=== PATIENT | male | born 1975 ===

== ENCOUNTER 2021-12-29 20:10 | Emergency (ER) | payer OTHER, SELFPAY ==
--- NOTE | ~2021-12-29 | XR_ITS ---
EXAMINATION: XR ANKLE, RIGHT XR FOOT, RIGHT CLINICAL INFORMATION: Pain. Limited range of motion. COMPARISON: None TECHNIQUE: AP, oblique, and lateral views of the right ankle and right foot. FINDINGS: No acute fracture or dislocation. The ankle mortise is maintained. Mild joint space narrowing with small marginal osteophytes at the talonavicular joint. Mild joint space narrowing with tiny marginal osteophytes at the hallux sesamoids. No concerning lytic or blastic osseous lesion. Plantar and dorsal calcaneal spurs. XR/XR foot RT min 3V IMPRESSION: 1. No acute fracture or dislocation. 2. 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 3. Plantar and dorsal calcaneal spurs.
--- NOTE | ~2021-12-29 | XR_ITS ---
EXAMINATION: XR ANKLE, RIGHT XR FOOT, RIGHT CLINICAL INFORMATION: Pain. Limited range of motion. COMPARISON: None TECHNIQUE: AP, oblique, and lateral views of the right ankle and right foot. FINDINGS: No acute fracture or dislocation. The ankle mortise is maintained. Mild joint space narrowing with small marginal osteophytes at the talonavicular joint. Mild joint space narrowing with tiny marginal osteophytes at the hallux sesamoids. No concerning lytic or blastic osseous lesion. Plantar and dorsal calcaneal spurs. XR/XR ankle RT min 3V IMPRESSION: 1. No acute fracture or dislocation. 2. 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 3. Plantar and dorsal calcaneal spurs.
[2021-12-29 20:35] VITALS: BP 152/72; PULSE 96; RESP 18; TEMP 37.2; O2SAT 98; BMI 35.5
--- OUTSIDE RECORDS SUMMARY | 2021-12-29 21:50 | XMS_ITS | Continuity of Care Document ---
:1975 Author Organization [facility] Address [address] [place] [address]- Care Team Providers Name Role Phone Cristopher JOHNSTON, Kyle Primary Care Phys[place] [facility] [place] [facility] [address] [place] [phone]- Attending Physician: Jose Eduardo Friedman Admitting Physician: AdmJose Eduardo oh Referring Physician: Admtr ArStas Allergies, Adverse Reactions, Alerts Substance Reaction Severity Status Peanuts edema, itching Active Fruit Active Medications Alcohol Pads See Instructions, # 1 box, Refills 1, Tot. Refills 1, Maintenance, use daily to check sugar. ,04/18/16 11:43:42, Compound Start Date: 04/18/16 Status: OrderedFreestyle InsuLinx Test Strips See Instructions, # 50 each, Refills 1, Tot. Refills 1, Maintenance, Use once daily to check sugar. ., 04/18/16 11:43:07, Compound Start Date: 04/18/16 Status: OrderedFreestyle Lite Lancets See Instructions, # 50 each, Refills 1, Tot. Refills 1, Maintenance, Use once daily to check sugar. , 04/18/16 11:42:11, Compound Start Date: 04/18/16 Status: OrderedFreestyle Lite Monitor See Instructions, # 1 each, Maintenance, Use daily to check glucose., 12/11/15 15:14:39, Compound Start Date: 12/11/15 Status: OrderedFreestyle Lite Test Strips See Instructions, # 100 each, Refills 3, Tot. Refills 3, Maintenance, use as directed for Type 2 Diabetes Mellitus, E11.65, check BS once daily. 90 day supply., 05/04/16 11:28:39, Compound Start Date: 05/04/16 Stop Date: 09/01/16 Status: OrderedLamISIL AT 1% topical cream 1 application, Topically, 2 times a day, # 30 Gm, 3 Refills, Maintenance, 01/06/16 19:06:38, Cream, 1 application Topically 2 times a day Start Date: 01/06/16 Status: OrderedmetFORMIN 500 mg oral tablet 1 tablet = 500 mg, By Mouth, 2 times a day, with meals, # 60 tablet, 11 Refills, Maintenance, 01/26/16 8:48:16, Tablet Start Date: 01/26/16 Stop Date: 01/20/17 Status: Ordered Problem List Condition Effective Dates Status Health Status Informant Hypertension(Confirmed) Active VIKTOR (obstructive sleep Active apnea)(Confirmed) Type 2 diabetes mellitus(Confirmed) Active Social History Social History Type Response Smoking Status Never smoker entered on: 09/22/13 Sex
--- OUTSIDE RECORDS SUMMARY | 2021-12-29 21:50 | XMS_ITS | Continuity of Care Document ---
:1975 Author Organization [facility] Adult Address [address] [place] [address]- Care Team Providers Name Role Phone Cristopher JOHNSTON, Kyle Primary Care Physician [place] [facility] [place] 07[place]/21 [facility] [address] [place] [phone]- Attending Physician: Not on Staff, Attending MD Allergies, Adverse Reactions, Alerts Substance Reaction Severity [...] as directed for Type 2 Diabetes Mellitus, , check BS once daily. 90 day supply., [...]
--- OUTSIDE RECORDS SUMMARY | 2021-12-29 21:50 | XMS_ITS | Continuity of Care Document ---
:1975 Author Organization [facility] Adult Address [address] [place] [address]- Care Team Providers Name Role Phone Kyle Nicholas MD Primary Care Physician [place] [facility] [place] 03[place]/21 [facility] [address] [place] [phone]- Allergies, Adverse Reactions, Alerts Substance Reaction Severity [...] 1 each, Maintenance, Use daily to check glucose.12/11/15 15:14:39, Compound Start Date: 12/11/15 Status: OrderedFreestyle Lite Test Strips See Instructions, # 100 each, Refills 3, Tot. Refills 3, Maintenance, use as directed for Type 2 Diabetes Mellitus, , check BS once daily. day supply., 05/04/16 11:28:39, Compound Start Date: [...]
--- NOTE | 2021-12-29 21:57 | ED.LOWEXIN ---
HPI - Extremity Injury (Lower) General Chief Complaint: Extremity Injury, Lower Stated Complaint: ankle inj - work related Time Seen by Provider: 12/29/21 21:50 Source: patient Mode of arrival: wheelchair Limitations: no limitations History of Present Illness HPI Narrative: patient comes to the emergency room complaining of right ankle pain. Patient states he was at work, he accidentally sprained his ankle. Patient denies falling, no loss of consciousness or head strike. Patient states that Initially he was able to bear weight but it was hurting doing so. Patient sat down for a moment to rest, then when he got up, he noticed that the pain was unbearable and since then he has been unable to bear weight on his foot Related Data Allergies Allergy/AdvReac Type Severity Reaction Status Date / Time No Known Allergies Allergy Verified 12/29/21 20:35 Review of Systems Review of Systems: Constitutional : No Weight loss, No Fever, No Chills, No Night Sweats, No Fatigue, No Malaise ENT/Mouth : No Hearing loss, No Ear Pain, No Nasal Congestion, No Sinus Pain, No Hoarseness, No sore throat, No Rhinorrhea, No Swallowing Difficulty Eyes: No Eye Pain, No Swelling, No Redness, No Foreign Body, No Discharge, No Vision Changes Cardiovascular : No Chest Pain, No SOB, No Dyspnea on Exertion, No Orthopnea, No Edema, No Palpitations Respiratory : No Cough, No Sputum, No Wheezing, No Smoke Exposure, No Dyspnea Gastrointestinal : No Nausea, No Vomiting, No Diarrhea, No Constipation, No abdominal Pain, No Hematochezia, No Melena Genitourinary : no irregular bleeding, No Dysuria, No Urinary Frequency, No Hematuria, No Urinary Incontinence, No Urgency, No Flank Pain, No Urinary Flow Changes, No Hesitancy Musculoskeletal : complaining right ankle pain No Myalgias, No Joint Swelling Skin : No Skin Lesions, No rash Neuro : No Weakness, No Numbness, No Paresthesias, No Loss of Consciousness, No Dizziness, No Headache Psych : No Anxiety/Panic, No Depression, No SI/HI/AH/VH, No Social Issues, Heme/Lymph: No Bruising, No Bleeding,No Lymphadenopathy Endocrine : No Polyuria, No Polydipsia, No Temperature Intolerance PMFSH Social History Social History Advance Directives: No Advance Directives Information Provided: Yes Physical Exam Vital Signs: Vital Signs: Last Vital Signs Temp 98.9 F 12/29/21 20:35 Pulse 96 12/29/21 20:35 Resp 18 12/29/21 20:35 BP 152/72 H 12/29/21 20:35 Pulse Ox 98 12/29/21 20:35 O2 Del Method 12/29/21 20:35 BMI result Body Mass Index 35.5 Const: Other: Appearance: Alert. Oriented X3. No acute distress. Eyes: Pupils equal, round and reactive to light. ENT: Pharynx normal. Neck: Normal inspection. Neck supple. No lymph nodes noted. No crepitus CVS: Normal heart rate and rhythm. Pulses normal. Normal S1 and S2 Respiratory: No respiratory distress. Breath sounds normal. No Wheezing. No rales Abdomen: Soft and nontender. No rigidity. No distention. Skin: Skin warm and dry. Normal skin color. Normal skin turgor. Extremities: there is no significant swelling either in the lateral or over medial malleolar, only pain to palpation over the lateral malleolus. Neuro: Oriented X 3. No motor deficit. No sensory deficit. Moving all extremities. No slurred speech. CN 2 through 12 grossly intact Psych: calm, cooperative, normal affect Course Course Course Narrative: I discussed the x-ray findings with the patient, no fracture. Patient was provided with crutches. Patient states that he has Tylenol and ibuprofen at home. Does not require a prescription. MDM - Extremity Injury (Lower) Imaging Data foot and ankle x-ray: Radiologist's impression: FINDINGS: No acute fracture or dislocation. The ankle mortise is maintained. Mild joint space narrowing with small marginal osteophytes at the talonavicular joint. Mild joint space narrowing with tiny marginal osteophytes at the hallux sesamoids. No concerning lytic or blastic osseous lesion. Plantar and dorsal calcaneal spurs. XR/XR foot RT min 3V IMPRESSION: 1. No acute fracture or dislocation. 2. 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 3. Plantar and dorsal calcaneal spurs. Discharge Plan Discharge Clinical Impression: Ankle sprain and strain Patient Disposition: Home, Self-Care Instructions: Ankle Sprain (ED) Additional Instructions: Please follow-up with your primary care physician tomorrow. If you have any worsening or new symptoms, please return to the emergency room or call 911 Stand Alone Forms: Work/School Release
== END 2021-12-29 22:59 | disposition home or self-care (01) ==
PROVIDERS: Emergency Provider Emergency Medicine; PCP Internal Medicine
DX: S93.401A Sprain of unspecified ligament of right ankle, initial encounter (principal); S96.911A Strain of unspecified muscle and tendon at ankle and foot level, right foot, initial encounter; X50.1XXA Overexertion from prolonged static or awkward postures, initial encounter; M77.31 Calcaneal spur, right foot; Y93.9 Activity, unspecified; Y92.9 Unspecified place or not applicable; Y99.0 Civilian activity done for income or pay
CPT/HCPCS: 73610; 73630; 99282; 99283

== ENCOUNTER 2023-07-25 11:44 | Emergency (ER) | payer OTHER, SELFPAY ==
--- NOTE | ~2023-07-25 | CT_ITS ---
EXAMINATION: CT ABDOMEN AND PELVIS WITHOUT CONTRAST CLINICAL INFORMATION: Right-sided flank pain. COMPARISON: None available. TECHNIQUE: Multidetector volumetric imaging was performed from the superior aspect of the liver through the pubic symphysis. Sagittal and coronal reformatted images were obtained on the technologist's workstation. This CT examination was performed using dose optimization techniques as appropriate, variously including the following: *Automated exposure control *Adjustment of mA and/or kV according to patient size (this includes techniques or standardized protocols for targeted exams where dose is matched to indication/reason for exam; i.e. extremities or head) *Use of iterative reconstruction technique DLP: 593 mGy-cm FINDINGS: LUNG BASES: No pleural or pericardial effusion.. LIVER, GALLBLADDER, AND BILIARY TREE: The noncontrast liver is enlarged and decreased in attenuation. There are scattered hyperattenuating foci that are indeterminate. No biliary ductal dilatation is present. The gallbladder is unremarkable with no evidence of radiopaque gallstones, gallbladder wall thickening, or obvious pericholecystic inflammatory changes. PANCREAS: No ductal dilatation. SPLEEN: Not enlarged. ADRENAL GLANDS: No adrenal mass. KIDNEYS AND URETERS: There is mild right hydroureteronephrosis. 4 mm calculus in the right mid ureter. Mild right periureteric stranding. The left kidney is unremarkable. BLADDER: Unremarkable. GASTROINTESTINAL TRACT: Small and large bowel loops are of normal caliber. No small bowel obstruction. ABDOMINAL WALL: No significant hernia is appreciated. LYMPH NODES: Enlarged lisa hepatis/periportal lymph nodes likely reactive basis. VASCULAR: Unremarkable. PELVIC VISCERA: Mild enlargement of the prostate gland. OSSEOUS STRUCTURES: No destructive bone lesions. CT/CT abdomen pelvis wo IV con IMPRESSION: 4 mm calculus in the mid right ureter. Mild right hydroureteronephrosis. Mild right periureteric stranding. Hepatomegaly and hepatic steatosis. There are several indeterminate hyperattenuating hepatic lesions. MRI is recommended for further characterization.
[2023-07-25 11:57] VITALS: BP 189/71; PULSE 79; RESP 20; TEMP 37; O2SAT 99; BMI 34.5
--- NOTE | 2023-07-25 11:58 | ED.GENADULT ---
HPI - General Adult General Chief complaint: Abdominal Pain Stated complaint: Low Back Pain Radiating Low R Side Time Seen by Provider: 07/25/23 21:49 Source: patient and family (Spouse) Mode of arrival: ambulatory Limitations: no limitations History of Present Illness HPI narrative: 47-year-old male with history of diabetes mellitus, hypertension, hyperlipidemia, obstructive sleep apnea who presents emergency department for evaluation of right flank pain. The patient states that he has been having intermittent right flank pain times 1 month. He states that this morning at 09:00 hours he developed sudden onset of severe right flank pain. He states the pain was a sharp/pressure-like pain which was greater than 10/10. He had associated nausea with no vomiting. He was unable to urinate or move his bowels. Patient states that he did have a kidney stone 20 years ago but he does not remember if this pain was similar to his kidney stone pain. Related Data Previous Rx's ?Medication ?Instructions ?Recorded morphine 15 mg immediate release 15 mg PO Q6H PRN pain #14 tabs 07/25/23 tablet tamsulosin 0.4 mg capsule (Flomax) 0.4 mg PO DAILY #30 caps 07/25/23 Allergies Allergy/AdvReac Type Severity Reaction Status Date / Time No Known Allergies Allergy Verified 07/25/23 12:00 Review of Systems Review of Systems: Yes all other systems are reviewed and are negative [facility] Past Medical History [facility] Narrative: Social history: He denies tobacco, alcohol and drug use. Social History Social History Advance Directives: No Advance Directives Information Provided: No Do you have a plan to hurt others: No Plan Physical Exam ED Vital Signs: Vital Signs - 24 hr 07/25/23 11:57 07/25/23 19:36 07/25/23 21:55 Temperature 98.6 F 98.6 F 98.7 F Pulse Rate 79 96 85 Respiratory Rate 20 16 19 Blood Pressure 189/71 H 156/75 H 153/68 H Pulse Oximetry 99 98 98 Oxygen Delivery Method Room Air Room Air Room Air BMI result Body Mass Index 34.5 Vital signs did reveal an elevated blood pressure of 189/71-this is most likely secondary to pain Exam: General: Awake, alert in no distress Head: Normocephalic, atraumatic EENT: PERRL, Lids normal, sclera normal, conjunctiva normal, nose normal , ears normal, throat without erythema or exudates Neck: Supple, no adenopathy Lung: breath sounds symmetric, no wheezing, rales or rhonchi Chest: symmetric movement, nontender Heart: regular rate and rhythm, normal S1, S2 no murmurs or rubs Abdomen: soft, non-tender, nondistended, normal bowel sounds Back: no vertebral tenderness, no CVAT Extremities: no deformities, moves all extremities symmetrically Neuro: Awake, alert, oriented, normal speech, cranial nerves intact, moves all extremities symmetrically Psych: Pleasant, cooperative Course Course Course Narrative: This is an RME: Additional HPI, ROS, PE not included below will be deferred to primary provider. 47 y old m with pmhx of kidney stones presents with right sided flank pain and urinary hesitancy since this morning. Reports right sided testicular pain. Denies cp, shortness of breath, 03diarrhea, nausea, vomiting. Plan- labs and imaging Medications Administered Discontinued Medications Generic Name Dose Route Start Last Admin Trade Name Freq PRN Reason Stop Dose Admin Sodium Chloride 1,000 mls @ 999 mls/hr 07/25/23 12:00 07/25/23 21:55 Ns IV 07/25/23 13:00 999 mls/hr .Q1H1M DOUG Administration Sodium Chloride 1,000 mls @ 999 mls/hr 07/25/23 12:00 07/25/23 21:55 Ns IV 07/25/23 13:00 999 mls/hr .Q1H1M DOUG Administration Ketorolac Tromethamine 30 mg 07/25/23 12:01 07/25/23 21:55 Ketorolac Tromethamine 15 Mg/Ml Vial IVPUSH 07/25/23 12:02 30 mg ONCE ONE Administration Medical Decision Making Medical Decision Making [facility] Narrative: 47-year-old male with history of diabetes mellitus, hypertension, hyperlipidemia, obstructive sleep apnea who presents emergency department for evaluation sudden onset of sharp/pressure-like/greater than 10/10 right flank pain. The pain began around 09:00 hours has been in intensity. At the time my evaluation the patient's pain was 5/10. Patient's physical examination was unremarkable except for an elevated blood pressure was most likely secondary to his pain. Differential diagnosis: ?Includes but is not limited to renal colic, ureteral colic, ureteral stone, urinary tract infection, electrolyte abnormalities, anemia, renal failure Following evaluation was ordered: CBC, CMP, lipase, magnesium, urinalysis Patient was initially treated with the following: Normal saline IV x2 L, Toradol 30 mg IV, Flomax 0.4 mg orally Course: 22:44 My interpretation of the patient's laboratory evaluation is as follows: CBC was normal. BUN was elevated at 18 with normal creatinine. Glucose elevated 275. AST and ALT elevated 46 and 70. Urinalysis was positive for blood. Microscopic revealed greater than 20 RBCs, 0-5 WBCs and no bacteria. CT scan of the abdomen pelvis without IV contrast revealed a 4 mm calculus in the mid right ureter with mild right hydroureteronephrosis and mild right periureteral stranding. Patient does have hepatomegaly and hepatic steatosis with several indeterminate hypoattenuating hepatic lesions. I did discuss the patient's laboratory evaluation and pertinent CT scan findings as well as the incidental findings with the patient and the patient's . 22:54 The patient's pain resolved after the above treatment. Patient was advised to take Tylenol ibuprofen for pain and for pain not relieved by these 2 medications he was prescribed morphine 15 mg every 6 hours as needed for pain. He was also prescribed Flomax 0.4 mg at night until he passes the stone. He was given printed and verbal instructions and discharged home. Admission/Observation Consideration of admission/observation: Escalation of care including admission/observation considered Lab Data MDM Lab Attestation statement: I reviewed the patient's lab results. 07/25/23 12:22 07/25/23 12:22 Labs: Lab Results 07/25/23 07/25/23 Range/Units 12:22 19:40 WBC 7.7 (4.8-10.8) X10*3/uL RBC 5.24 (4.60-5.80) X10*6/uL Hgb 15.6 (14.0-18.0) g/dl Hct 46.0 (42.0-52.0) % MCV 87.8 (80.0-98.0) fL MCH 29.8 (27.0-33.0) pg MCHC 33.9 (31.0-36.0) g/dl RDW 12.4 (11.0-16.0) % Plt Count 242 (160-400) X10*3/uL MPV 11.6 (9.4-12.4) fL Immature Gran % (Auto) 0.3 (0.0-0.4) % Neut % (Auto) 63.6 (45-73) % Lymph % (Auto) 25.7 (20-40) % [place] % (Auto) 8.0 (2-11) % Eos % (Auto) 1.6 (0-4) % Baso % (Auto) 0.8 (0-2) % Lymph # (Auto) 2.0 (1.2-4.9) X10*3/uL [place] # (Auto) 0.6 (0.1-1.2) X10*3/uL Eos # (Auto) 0.1 (0.0-0.4) X10*3/uL Baso # (Auto) 0.1 (0.0-0.2) X10*3/uL Abs Immat Gran (auto) 0.02 (0.00-0.03) X10*3/uL Absolute Neuts (auto) 4.9 (2.0-8.3) x10*3/uL Absolute Nucleated RBC 0.000 (0.0-0.012) X10*3/uL Nucleated RBC % (auto) 0.0 (0.0-0.2) /100WBC Sodium 138 (135-145) mmol/L Potassium 3.7 (3.3-5.1) mmol/L Chloride 100 (96-108) mmol/L Carbon Dioxide 28 (22-29) mmol/L Anion Gap 14 (12-20) BUN 18 H (9-16) mg/dL Creatinine 1.12 (0.5-1.4) mg/dL Estim Creat Clear Calc 87.9 Estimated GFR > 60 Random Glucose 275 H (60-115) mg/dL Calcium 9.5 (8.4-10.2) mg/dL Magnesium 1.9 (1.6-2.6) mg/dL Total Bilirubin 0.5 (0.0-1.0) mg/dL AST 46 H (5-37) U/L ALT 70 H (0-40) U/L Alkaline Phosphatase 67 (39-117) U/L Total Protein 7.7 (6.5-8.0) g/dL Albumin 4.3 (3.5-5.0) g/dL Lipase 19 (8-78) U/L Urine Color Yellow Urine Appearance Cloudy Urine pH 5.0 (5.0-9.0) Ur Specific [place] >= 1.030 H (1.005-1.025) Urine Protein 30 (1+) H (Neg-Trace) mg/dL Urine Glucose (UA) 500 H (Negative) mg/dL Urine Ketones Negative (Negative) mg/dL Urine Blood Large (3+) H (Negative) Urine Nitrite Negative (Negative) Ur Leukocyte Esterase Negative (Negative) Urine RBC >20 H (0-2) /HPF Urine WBC 0-5 (0-5) /HPF Ur Squamous Epith Cells 6-10 (0-2) /HPF Calcium Oxalate Crystal Present Urine Bacteria None Seen (None Seen) Hyaline Casts 3-5 (0-2) /LPF Radiology Impression Discussion of test interpretation with radiology: I have reviewed the radiologist's reading. Radiologist Impression: CT abdomen pelvis wo IV con IMPRESSION: 4 mm calculus in the mid right ureter. Mild right hydroureteronephrosis. Mild right periureteric stranding. Hepatomegaly and hepatic steatosis. There are several indeterminate hyperattenuating hepatic lesions. MRI is recommended for further characterization. Dictated By: Tereza Boyd MD Independent Historian Clinical information obtained from an independent historian. History obtained from or confirmed by: Spouse Prescription Management I considered prescription management with: Pain Medication Chronic Conditions Patient?s care impacted by: Diabetes and Hypertension Discharge Plan Discharge Clinical Impression: Calculus of right ureter Patient Disposition: Home, Self-Care Instructions: How to Strain Your Urine (ED), Ureteral Stones (ED) Additional Instructions: You have a 4 mm stone in the mid right ureter (the tube that connects the kidney to the bladder). This is the cause of your severe pain. Usually a 4 mm stone can be past however it can sometimes take 1-3 weeks to pass the stone. Urine and if you catch a stone put it in the cup provided to you and bring it to the urologist on-call. I want you to follow-up with our urologist within 1 week for re-evaluation. Take Flomax (tamsulosin) 0.4 mg once a day for the next 2 weeks or until you pass the stone. ?This medication helps relax the ureter and may help you pass the stone sooner. Take ibuprofen 200 mg pills, 3 pills every 6 hours as needed for pain. Take Tylenol (acetaminophen) 2 pills every 4-6 hours as needed for pain. For pain not relieved by ibuprofen or Tylenol take morphine 15 mg pills, 1 pill every 4 hours as needed for pain. This medication will make you sleepy, do not drive or work while taking this medication. Morphine is a narcotic medication and can be addicting. If you are concerned about addiction you can ask the pharmacist for less pills or do not get this prescription filled. Follow-up with your doctor in 2 days. Please return to the emergency department if your symptoms get worse or if you develop any symptoms that are concerning to you. Please see the work note Your findings in your liver You have hepatomegaly ( enlarged liver) and steatosis (fatty liver) and several hepatic lesions. The radiologist is recommending that you get an MRI as a follow-up test, primary. And this should be ordered by your primary care doctor if they think it is necessary. Please show your primary care doctor the radiology impression below. IMPRESSION: 4 mm calculus in the mid right ureter. Mild right hydroureteronephrosis. Mild right periureteric stranding. Hepatomegaly and hepatic steatosis. There are several indeterminate hyperattenuating hepatic lesions. MRI is recommended for further characterization. Dictated By: Tereza Boyd MD Prescriptions: New tamsulosin [Flomax] 0.4 mg capsule 0.4 mg PO DAILY Qty: 30 0RF morphine 15 mg tablet 15 mg PO Q6H PRN (Reason: pain) Qty: 14 0RF Rx Instructions: Patient may request partial fill; Partial Fill upon patient request. Referrals: Frantz Rueda MD [Physician] - 1 week (4 mm right mid ureteral stone) Stand Alone Forms: Work/School Release Print Language: Tajik
[2023-07-25 12:27] LABS: MANUAL DIFF FLAG NO
[2023-07-25 12:28] LABS: Basophils Absolute Auto 0.1 X10*3/uL (0.0-0.2); Basophils Percent Auto 0.8 % (0-2); Eosinophils Absolute Auto 0.1 X10*3/uL (0.0-0.4); Eosinophils Percent Auto 1.6 % (0-4); Hemoglobin 15.6 g/dl (14.0-18.0); Imm Gran Abs Auto 0.02 X10*3/uL (0.00-0.03); Imm Gran Pct Auto 0.3 % (0.0-0.4); Lymphocytes Percent Auto 25.7 % (20-40); Mean Corpuscular HGB Conc 33.9 g/dl (31.0-36.0); Mean Corpuscular Hemoglobin 29.8 pg (27.0-33.0); Mean Corpuscular Volume 87.8 fL (80.0-98.0); Mean Platelet Volume 11.6 fL (9.4-12.4); Monocytes Absolute Auto 0.6 X10*3/uL (0.1-1.2); Neutrophils Absolute Auto 4.9 x10*3/uL (2.0-8.3); Neutrophils Percent Auto 63.6 % (45-73); Platelet Count 242 X10*3/uL (160-400); Red Blood Count 5.24 X10*6/uL (4.60-5.80); Red Cell Distribution Width 12.4 % (11.0-16.0); White Blood Count 7.7 X10*3/uL (4.8-10.8)
[2023-07-25 12:42] LABS: Alanine Aminotransferase 70 U/L (0-40); Albumin Level 4.3 g/dL (3.5-5.0); Alkaline Phosphatase 67 U/L (39-117); Anion Gap 14 (12-20); Aspartate Amino Transferase 46 U/L (5-37); Bilirubin Total 0.5 mg/dL (0.0-1.0); Blood Urea Nitrogen 18 mg/dL (9-16); Calcium 9.5 mg/dL (8.4-10.2); Carbon Dioxide 28 mmol/L (22-29); Chloride 100 mmol/L (96-108); Creatinine Clr Calc Pharmacy 87.9; Estimated Glomerular Filt Rate > 60; Glucose Random 275 mg/dL (60-115); Lipase 19 U/L (8-78); Magnesium 1.9 mg/dL (1.6-2.6); Potassium 3.7 mmol/L (3.3-5.1); Sodium 138 mmol/L (135-145); Total Protein 7.7 g/dL (6.5-8.0)
[2023-07-25 19:36] VITALS: BP 156/75; PULSE 96; RESP 16; TEMP 37; O2SAT 98
--- NOTE | 2023-07-25 19:43 | PC.NURSE ---
Urine collected and sent to lab.
[2023-07-25 19:50] LABS: Appearance Urine Cloudy; Color Urine Yellow; Glucose Urine UA 500 mg/dL (Negative); Leukocyte Esterase Urine Negative (Negative); Nitrite Urine Negative (Negative); Specific Gravity - Urine >= 1.030 (1.005-1.025); UMIC TRIGGER UACC YES; Urine Blood Large (3+) (Negative); Urine Ketones Negative (Negative); Urine Protein 30 (1+) mg/dL (Neg-Trace)
[2023-07-25 20:15] LABS: Bacteria Urine None Seen (None Seen); Calcium Oxalate Crystals Urine Present; RBC Urine >20 /HPF (0-2); WBC Urine 0-5 /HPF (0-5)
[2023-07-25 21:55] VITALS: BP 153/68; PULSE 85; RESP 19; TEMP 37.1; O2SAT 98
[2023-07-25] MEDS: Ketorolac Tromethamine 15 MG/ML VIAL 30 MG IVPUSH (21:55)
[2023-07-25] MEDS: 0.9 % Sodium Chloride 1,000 ML 999 ML IV ×2 (21:55)
[2023-07-25] MEDS: Tamsulosin HCL 0.4 MG CAPSULE PO (23:03)
[2023-07-25 23:18] VITALS: BP 153/68; PULSE 85; RESP 19; TEMP 37.1; O2SAT 98
== END 2023-07-25 23:20 | disposition home or self-care (01) ==
PROVIDERS: Physician Assistant; Emergency Provider Emergency Medicine Emergency Medical Services; PCP Internal Medicine
DX: N20.1 Calculus of ureter (principal); E11.9 Type 2 diabetes mellitus without complications; I10 Essential (primary) hypertension
CPT/HCPCS: 36415; 74176; 80053; 81001; 83690; 83735; 85025; 96374; 99284; J1885